=== PATIENT | male | born 1985 | race African-American/Black ===

== ENCOUNTER 2022-01-04 16:38 | Emergency (ER) | payer MEDICAID ==
[~2022-01-04] VITALS: Ht 188 cm; Wt 111.1 kg
[2022-01-04 17:25] VITALS: BP_SYST 132
[2022-01-04 18:45] LABS: BASOPHILS # (AUTO) 0.1 K/uL (0.0-0.2); BASOPHILS % (AUTO) 0.9 % (0.0-2.0); EOSINOPHILS # (AUTO) 0.2 K/uL (0.0-0.4); EOSINOPHILS % (AUTO) 1.6 % (0.0-4.0); HEMATOCRIT 36.8 % (36-54); HEMOGLOBIN 12.3 g/dL (14.0-18.0); LYMPHOCYTES # (AUTO) 2.1 K/uL (1.0-5.5); LYMPHOCYTES % (AUTO) 21.1 % (20.5-51.5); MEAN CORPUSCULAR HEMOGLOBIN 30 pg (27-31); MEAN CORPUSCULAR HGB CONC 33 % (32-36); MEAN CORPUSCULAR VOLUME 89 fL (79.0-98.0); MONOCYTES # (AUTO) 0.9 K/uL (0.0-1.0); MONOCYTES % (AUTO) 8.9 % (1.7-9.3); NEUTROPHILS # (AUTO) 6.8 K/uL (1.8-7.7); NEUTROPHILS % (AUTO) 67.5 % (40.0-70.0); PLATELET COUNT (AUTO) 213 K/uL (130-430); RED BLOOD CELL COUNT(AUTO) 4.13 MIL/uL (4.2-6.2); RED CELL DISTRIBUTION WIDTH 15.3 % (9.0-15.0)
[2022-01-04 18:50] LABS: CREATININE 0.96 mg/dL (0.55-1.30); POTASSIUM 3.4 mmol/L (3.5-5.1)
[2022-01-04 18:56] LABS: ALBUMIN 3.7 g/dL (3.4-4.8); TOTAL BILIRUBIN 0.5 mg/dL (0.0-1.0)
--- NOTE | 2022-01-04 19:00 | NUR ---
Pt brought by self, c/o swelling on bilateral lower extremities, denies chest pain or SOB, will cont to monitor.
--- NOTE | 2022-01-04 19:30 | NUR ---
Dr Montoya evaluating patient at bedside
--- NOTE | 2022-01-04 21:40 | NUR ---
PATIENT LEFT WITHOUT RECIEVING DISCHARGE PAPERWORK AFTER SPEAKING TO .
== END 2022-01-04 21:40 | disposition home or self-care (01) ==
LOC: SED 16:38
DX: R22.43 Localized swelling, mass and lump, lower limb, bilateral (principal)
CPT/HCPCS: 36415; 71045; 80053; 83880; 85025; 93971; 99285